=== PATIENT | male | born 1965 | race Caucasian/White ===

== ENCOUNTER → 2020-05-25 15:36 | Outpatient (BNVA) | payer OTHER, SELFPAY | PROVIDERS: PCP Internal Medicine; Visit Provider Physician Assistant | DX: S39.012A Strain of muscle, fascia and tendon of lower back, initial encounter (principal); X50.9XXA Other and unspecified overexertion or strenuous movements or postures, initial encounter | CPT/HCPCS: 99202 ==

== ENCOUNTER → 2020-05-28 10:43 | Outpatient (BNVA) | payer OTHER, SELFPAY | PROVIDERS: PCP Internal Medicine; Visit Provider Physician Assistant Medical | DX: S39.012A Strain of muscle, fascia and tendon of lower back, initial encounter (principal); X50.9XXA Other and unspecified overexertion or strenuous movements or postures, initial encounter | CPT/HCPCS: 99213 ==

== ENCOUNTER → 2020-06-02 12:37 | Outpatient (BNVA) | payer OTHER, SELFPAY | PROVIDERS: PCP Internal Medicine; Visit Provider Physician Assistant | DX: S39.012D Strain of muscle, fascia and tendon of lower back, subsequent encounter (principal); X58.XXXD Exposure to other specified factors, subsequent encounter | CPT/HCPCS: 99213 ==

== ENCOUNTER → 2020-06-08 15:32 | Outpatient (BNVA) | payer OTHER, SELFPAY | PROVIDERS: PCP Internal Medicine; Visit Provider Physician Assistant | DX: S39.012D Strain of muscle, fascia and tendon of lower back, subsequent encounter (principal); X58.XXXD Exposure to other specified factors, subsequent encounter | CPT/HCPCS: 99213 ==

== ENCOUNTER 2022-02-25 18:10 | Emergency (ER) | payer OTHER, SELFPAY ==
--- NOTE | ~2022-02-25 | XR_ITS ---
EXAMINATION: XR KNEE, LEFT CLINICAL INFORMATION: Left knee pain COMPARISON: None TECHNIQUE: AP and lateral views of the left knee. FINDINGS: Status post total knee arthroplasty. No periprosthetic fracture dislocation. No significant periprosthetic radiolucency. Small amount of knee joint fluid. No large joint effusion. XR/XR knee LT 2V IMPRESSION: 1. Status post total knee arthroplasty. No radiographic evidence of complication. 2. Trace joint effusion.
--- NOTE | ~2022-02-25 | US_ITS ---
EXAMINATION: US VENOUS ULTRASOUND WITH DOPPLER LOWER EXTREMITY, LEFT CLINICAL INFORMATION: Lower extremity swelling and pain with positive d-dimer. COMPARISON: None TECHNIQUE: Ultrasound of the deep veins is performed from the hip to the calf with compression sonography and color and pulse Doppler assessment. Spectral analysis with color-flow imaging is performed. FINDINGS: There is normal venous compression and respiratory variation and augmented flow. The visualized common femoral vein, superficial femoral vein, profunda femoral vein, popliteal vein, and the trifurcation region shows no evidence of deep venous thrombosis. Imaged segments of the posterior tibial and peroneal calf veins are patent. US/US venous duplex LE LT IMPRESSION: No DVT demonstrated in the left lower extremity.
--- NOTE | ~2022-02-25 | CT_ITS ---
EXAMINATION: CT pelvis wo con, CT lower leg LT wo con CLINICAL INFORMATION: Reason for Exam left hip and calf pain COMPARISON: None. TECHNIQUE: Axial images were obtained through the pelvis in the left lower leg without the administration of intravenous contrast. Coronal and sagittal reformatted images were generated. Intravenous Contrast: None This CT examination was performed using dose optimization techniques as appropriate, variously including the following: *Automated exposure control *Adjustment of mA and/or kV according to patient size (this includes techniques or standardized protocols for targeted exams where dose is matched to indication/reason for exam; i.e. extremities or head) *Use of iterative reconstruction technique DLP: 896 mGy-cm FINDINGS: CT pelvis: Soft tissues: No free pelvic fluid. Bladder is grossly unremarkable. Prostate gland is grossly unremarkable. No dilated bowel loops in the [id number]. No pelvic or inguinal lymphadenopathy. Small fat-containing left inguinal hernia. No soft tissue mass. Bones: No fracture or malalignment. Minimal acetabular rim osteophyte formation at both hips compatible with mild degenerative change. Joint spaces appear maintained. No evidence of femoral head avascular necrosis. No suspicious osseous lesion. 1.2 cm sclerotic bone island in the left upper sacrum noted incidentally. Smaller sclerotic bone island in the right subcapital femoral neck. No large hip joint effusions. Pubic symphysis and SI joints are congruent and intact. Mild disc height loss at L5-S1. Left-sided prominent facet arthrosis at L4-L5. CT left lower leg: Status post total knee arthroplasty. No periprosthetic fracture. No areas of osteolysis or periprosthetic radiolucency to suggest stress small particle disease or loosening. Small knee joint effusion. No periarticular fluid collection identified. No soft tissue mass. No deep fascial edema/fluid. No tracking soft tissue gas. No ankle joint effusion. CT/CT lower leg LT wo con IMPRESSION: 1. No acute osseous injury identified. 2. Minimal bilateral hip joint osteoarthritis. 3. Status post left total knee arthroplasty. No evidence of loosening or osteolysis. 4. Small left knee joint effusion. 5. No acute soft tissue injury or mass identified.
--- NOTE | ~2022-02-25 | CT_ITS ---
EXAMINATION: CT pelvis wo con, CT lower leg LT wo con CLINICAL INFORMATION: Reason for Exam left hip and calf pain COMPARISON: None. TECHNIQUE: Axial images were obtained through the pelvis in the left lower leg without the administration of intravenous contrast. Coronal and sagittal reformatted images were generated. Intravenous Contrast: None This CT examination was performed using dose optimization techniques as appropriate, variously including the following: *Automated exposure control *Adjustment of mA and/or kV according to patient size (this includes techniques or standardized protocols for targeted exams where dose is matched to indication/reason for exam; i.e. extremities or head) *Use of iterative reconstruction technique DLP: 896 mGy-cm FINDINGS: CT pelvis: Soft tissues: No free pelvic fluid. Bladder is grossly unremarkable. Prostate gland is grossly unremarkable. No dilated bowel loops in the [id number]. No pelvic or inguinal lymphadenopathy. Small fat-containing left inguinal hernia. No soft tissue mass. Bones: No fracture or malalignment. Minimal acetabular rim osteophyte formation at both hips compatible with mild degenerative change. Joint spaces appear maintained. No evidence of femoral head avascular necrosis. No suspicious osseous lesion. 1.2 cm sclerotic bone island in the left upper sacrum noted incidentally. Smaller sclerotic bone island in the right subcapital femoral neck. No large hip joint effusions. Pubic symphysis and SI joints are congruent and intact. Mild disc height loss at L5-S1. Left-sided prominent facet arthrosis at L4-L5. CT left lower leg: Status post total knee arthroplasty. No periprosthetic fracture. No areas of osteolysis or periprosthetic radiolucency to suggest stress small particle disease or loosening. Small knee joint effusion. No periarticular fluid collection identified. No soft tissue mass. No deep fascial edema/fluid. No tracking soft tissue gas. No ankle joint effusion. CT/CT pelvis wo con IMPRESSION: 1. No acute osseous injury identified. 2. Minimal bilateral hip joint osteoarthritis. 3. Status post left total knee arthroplasty. No evidence of loosening or osteolysis. 4. Small left knee joint effusion. 5. No acute soft tissue injury or mass identified.
[2022-02-25 18:23] VITALS: BP 113/86; PULSE 75; RESP 18; TEMP 36.9; O2SAT 97; BMI 28.0
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
[2022-02-25 21:31] LABS: D Dimer High Sensitivity 373 NG/ML
== END 2022-02-26 00:09 | disposition home or self-care (01) ==
PROVIDERS: Physician Assistant; Emergency Provider Internal Medicine; PCP Internal Medicine
DX: Z04.1 Encounter for examination and observation following transport accident (principal); M79.605 Pain in left leg; M25.562 Pain in left knee; M25.462 Effusion, left knee; Z96.652 Presence of left artificial knee joint
CPT/HCPCS: 36415; 72192; 73560; 73700; 85379; 93971; 99282; 99283; 99284

== ENCOUNTER 2024-02-24 13:40 | Emergency (ER) | payer OTHER, SELFPAY ==
--- NOTE | ~2024-02-24 | US_ITS ---
EXAMINATION: US VENOUS ULTRASOUND WITH DOPPLER LOWER EXTREMITY, RIGHT CLINICAL INFORMATION: Pain COMPARISON: Lower extremity DVT ultrasound 02/25/2022 TECHNIQUE: Ultrasound of the deep veins is performed from the hip to the calf with compression sonography and color and pulse Doppler assessment. Spectral analysis with color-flow imaging is performed. FINDINGS: There is normal venous compression and respiratory variation and augmented flow. The visualized common femoral vein, superficial femoral vein, profunda femoral vein, popliteal vein, and the trifurcation region shows no evidence of deep venous thrombosis. There is no significant popliteal fossa cyst. US/US venous duplex LE RT IMPRESSION: No DVT demonstrated in the right lower extremity.
--- NOTE | ~2024-02-24 | US_ITS ---
EXAMINATION: US VENOUS ULTRASOUND WITH DOPPLER LOWER EXTREMITY, LEFT CLINICAL INFORMATION: Pain COMPARISON: None available. TECHNIQUE: Ultrasound of the deep veins is performed from the hip to the calf with compression sonography and color and pulse Doppler assessment. Spectral analysis with color-flow imaging is performed. FINDINGS: There is normal venous compression and respiratory variation and augmented flow. The visualized common femoral vein, superficial femoral vein, profunda femoral vein, popliteal vein, and the trifurcation region shows no evidence of deep venous thrombosis. There is no significant popliteal fossa cyst. . If the patient's symptoms persist, followup ultrasound in 5 days 7 days might be of value to exclude proximal propagation from a non-visualized calf vein. US/US venous duplex LE LT IMPRESSION: No DVT demonstrated in the left lower extremity.
[2024-02-24 13:52] VITALS: BP 134/70; PULSE 68; RESP 18; TEMP 36.6; O2SAT 98; BMI 36.6
--- NOTE | 2024-02-24 13:52 | ED_ITS ---
HPI - Extremity Injury (Lower) General Chief Complaint: Extremity Injury, Lower Stated Complaint: L leg pain, no injury Time Seen by Provider: 02/24/24 14:30 Source: patient Mode of arrival: ambulatory Limitations: no limitations History of Present Illness HPI Narrative: Patient is a 58-year-old male who presents emergency department for evaluation of leg cramps. He reports he has been experiencing left lateral thigh cramping intermittently over the past 5 days, states ?sometimes it gets so bad I can not bend bite knee. He has also been experiencing right calf pain that is described as being very sharp in nature. He denies any precipitating injury. He denies any recent medication changes. He denies any redness or warmth. Denies associated chest pain, shortness of breath, back pain, dizziness, lightheadedness. Related Data Allergies Allergy/AdvReac Type Severity Reaction Status Date / Time No Known Allergies Allergy Verified 02/24/24 13:53 Review of Systems 2 Review of Systems: Yes all other systems are reviewed and are negative [facility] Past Medical History Attestation statement: The following information was validated with the patient. Source: old records reviewed Social History Social History Smoked in Last 30 Days: No Use of substances other than those prescribed or required for medical reasons: No Advance Directives: No Advance Directives Information Provided: No Do you have a plan to hurt others: No Plan Physical Exam 2 Vital Signs: Vital Signs: Last Vital Signs Temp 97.9 F 02/24/24 15:41 Pulse 60 02/24/24 15:41 Resp 16 02/24/24 15:41 BP 125/64 02/24/24 15:41 Pulse Ox 100 02/24/24 15:41 O2 Del Method Room Air 02/24/24 15:41 BMI result Body Mass Index 36.6 Appearance: Alert.?Oriented to person, place and time. No acute distress.?Normal affect. Eyes: Pupils equal, round and reactive to light.? ENT: Pharynx normal.?? Neck: Normal inspection.? Neck supple.?? CVS: Heart sounds normal. Normal heart rate and rhythm.? Pulses normal.?? Respiratory: No respiratory distress.? Lung sounds clear to auscultation bilaterally?? Abdomen: Soft and non-tender. Normoactive bowel sounds. Skin: Skin warm and dry.? Normal skin color. Extremities: No lower extremity edema. Bilateral calf tenderness upon palpation. 2+ DP/PT pulse bilaterally Neuro: Moves all extremities spontaneously. Sensation intact bilaterally. Ambulates with normal steady gait. Course Course Course Narrative: This is a Rapid Medical Exam performed in triage by Katie Quintanilla PA-C. Full HPI, ROS and PE to be performed by primary ED provider. 58 year-old M w/ PMHx presenting to the ED c/o leg cramps to LLE x5 days & R calf pain. denies injury, SOB, back pain PE: ambulating w/limping gait Plan: Labs, US Reevaluation(s) Reevaluation #1: Patient signed out to night COURTNEY Sebastián MOLINA pending left lower extremity venous duplex ultrasound and re-evaluation, anticipate discharge home if negative for DVT Time: 16:06 Medications Administered Discontinued Medications Generic Name Dose Route Start Last Admin Trade Name Freq PRN Reason Stop Dose Admin Sodium Chloride 1,000 mls @ 999 mls/hr 02/24/24 15:00 02/24/24 15:09 Ns IV 02/24/24 16:00 999 mls/hr .Q1H1M KEEGAN Administration Ketorolac Tromethamine 15 mg 02/24/24 14:49 02/24/24 15:08 Ketorolac Tromethamine 15 Mg/Ml Vial IVPUSH 02/24/24 14:50 15 mg ONCE ONE Administration Medical Decision Making Medical Decision Making MDM Narrative: Patient is a 58-year-old male with history of left knee replacement presenting to emergency department for evaluation of cramping of the left lateral thigh and right calf pain as per HPI. Reviewed labs and radiographic imaging assumed prior to my assumption of care; CBC is without leukocytosis anemia or thrombocytopenia, no electrolyte derangement, no ALNOA, LFTs within normal range. CK mildly elevated at 448, son appear consistent with acute rhabdomyolysis. A venous duplex ultrasound of the right lower extremity was obtained and is without evidence of DVT. Discussed these findings with patient at the time of my evaluation, he states ?I do not know why they did not an ultrasound on my right leg is my left leg that is bothering me?. At this time he reports to me that he has occasional pain in his right calf described as a cramping sensation. He states ?I have severe pain in my left leg? points from the right lateral thigh and states that it extends all the way down to his lateral calf. On re-evaluation, he has calf tenderness on the left side. Has 2+ DP/PT pulse, no overt edema. He is wearing an [id number] left knee brace. Plan to obtain venous duplex ultrasound of the left, though clinically I have a lower suspicion for DVT. Differential Diagnosis Differential Diagnoses: The differential diagnosis associated with the presentation includes (DVT, Electrolyte derangement, ALONA, vitamin deficiency, dehydration, suspect less likely to have acute rhabdo) Admission/Observation Consideration of admission/observation: Escalation of care including admission/observation considered Lab Data MDM Lab Attestation statement: I reviewed the patient's lab results. CBC and CMP are overall unremarkable. Magnesium within normal range. Mildly elevated CPK at 448 02/24/24 14:07 02/24/24 14:07 Labs: Lab Results 02/24/24 Range/Units 14:07 WBC 9.5 (4.8-10.8) X10*3/uL RBC 5.36 (4.60-5.80) X10*6/uL Hgb 15.5 (14.0-18.0) g/dl Hct 45.9 (42.0-52.0) % MCV 85.6 (80.0-98.0) fL MCH 28.9 (27.0-33.0) pg MCHC 33.8 (31.0-36.0) g/dl RDW 12.4 (11.0-16.0) % Plt Count 255 (160-400) X10*3/uL MPV 9.1 L (9.4-12.4) fL Immature Gran % (Auto) 0.3 (0.0-0.4) % Neut % (Auto) 65.0 (45-73) % Lymph % (Auto) 26.2 (20-40) % [place] % (Auto) 7.1 (2-11) % Eos % (Auto) 1.2 (0-4) % Baso % (Auto) 0.2 (0-2) % Lymph # (Auto) 2.5 (1.2-4.9) X10*3/uL [place] # (Auto) 0.7 (0.1-1.2) X10*3/uL Eos # (Auto) 0.1 (0.0-0.4) X10*3/uL Baso # (Auto) 0.0 (0.0-0.2) X10*3/uL Abs Immat Gran (auto) 0.03 (0.00-0.03) X10*3/uL Absolute Neuts (auto) 6.2 (2.0-8.3) x10*3/uL Absolute Nucleated RBC 0.000 (0.0-0.012) X10*3/uL Nucleated RBC % (auto) 0.0 (0.0-0.2) /100WBC Sodium 136 (135-145) mmol/L Potassium 4.3 (3.3-5.1) mmol/L Chloride 105 (96-108) mmol/L Carbon Dioxide 22 (22-29) mmol/L Anion Gap 13 (12-20) BUN 17 H (9-16) mg/dL Creatinine 0.89 (0.5-1.4) mg/dL Estim Creat Clear Calc 80.9 Estimated GFR > 60 Random Glucose 104 (60-115) mg/dL Calcium 9.8 (8.4-10.2) mg/dL Magnesium 2.3 (1.6-2.6) mg/dL Total Bilirubin 0.5 (0.0-1.0) mg/dL Direct Bilirubin 0.2 (0.0-0.5) mg/dL AST 26 (5-37) U/L ALT 34 (0-40) U/L Alkaline Phosphatase 102 (39-117) U/L Total Creatine Kinase 448 H (38-174) U/L Total Protein 7.5 (6.5-8.0) g/dL Albumin 4.5 (3.5-5.0) g/dL Independent Interpretation I performed an independent interpretation of an: Ultrasound (No DVT) Radiology Impression Discussion of test interpretation with radiology: I have reviewed the radiologist's reading. Radiologist Impression: US/US venous duplex LE RT IMPRESSION: No DVT demonstrated in the right lower extremity. Independent Historian Clinical information obtained from an independent historian. History obtained from or confirmed by: Spouse External Record Review External record reviewed: Outpatient record Discharge Plan Discharge Clinical Impression: Lower extremity pain Patient Disposition: Still a Patient Print Language: Citizen Of [place]
[2024-02-24 14:00] VITALS: RESP 18
[2024-02-24 14:14] LABS: MANUAL DIFF FLAG NO
[2024-02-24 14:15] LABS: Basophils Percent Auto 0.2 % (0-2); Eosinophils Absolute Auto 0.1 X10*3/uL (0.0-0.4); Eosinophils Percent Auto 1.2 % (0-4); Hematocrit 45.9 % (42.0-52.0); Hemoglobin 15.5 g/dl (14.0-18.0); Imm Gran Abs Auto 0.03 X10*3/uL (0.00-0.03); Imm Gran Pct Auto 0.3 % (0.0-0.4); Lymphocytes Absolute Auto 2.5 X10*3/uL (1.2-4.9); Lymphocytes Percent Auto 26.2 % (20-40); Mean Corpuscular HGB Conc 33.8 g/dl (31.0-36.0); Mean Corpuscular Hemoglobin 28.9 pg (27.0-33.0); Mean Corpuscular Volume 85.6 fL (80.0-98.0); Mean Platelet Volume 9.1 fL (9.4-12.4); Monocytes Absolute Auto 0.7 X10*3/uL (0.1-1.2); Monocytes Percent Auto 7.1 % (2-11); Neutrophils Absolute Auto 6.2 x10*3/uL (2.0-8.3); Platelet Count 255 X10*3/uL (160-400); Red Blood Count 5.36 X10*6/uL (4.60-5.80); Red Cell Distribution Width 12.4 % (11.0-16.0); White Blood Count 9.5 X10*3/uL (4.8-10.8)
[2024-02-24 14:33] LABS: Alanine Aminotransferase 34 U/L (0-40); Albumin Level 4.5 g/dL (3.5-5.0); Alkaline Phosphatase 102 U/L (39-117); Anion Gap 13 (12-20); Aspartate Amino Transferase 26 U/L (5-37); Bilirubin Direct 0.2 mg/dL (0.0-0.5); Bilirubin Total 0.5 mg/dL (0.0-1.0); Blood Urea Nitrogen 17 mg/dL (9-16); Calcium 9.8 mg/dL (8.4-10.2); Carbon Dioxide 22 mmol/L (22-29); Chloride 105 mmol/L (96-108); Creatinine Clr Calc Pharmacy 80.9; Estimated Glomerular Filt Rate > 60; Glucose Random 104 mg/dL (60-115); Magnesium 2.3 mg/dL (1.6-2.6); Potassium 4.3 mmol/L (3.3-5.1); Sodium 136 mmol/L (135-145); Total Protein 7.5 g/dL (6.5-8.0)
[2024-02-24] MEDS: Ketorolac Tromethamine 15 MG/ML VIAL IVPUSH (15:08)
[2024-02-24] MEDS: 0.9 % Sodium Chloride 1,000 ML 999 ML IV (15:09)
[2024-02-24 15:41] VITALS: BP 125/64; PULSE 60; RESP 16; TEMP 36.6; O2SAT 100
[2024-02-24 17:21] VITALS: BP 125/64; PULSE 60; RESP 16; TEMP 36.6; O2SAT 100
== END 2024-02-24 17:22 | disposition home or self-care (01) ==
PROVIDERS: Physician Assistant; Emergency Provider Emergency Medicine; PCP Internal Medicine
DX: M79.662 Pain in left lower leg (principal)
CPT/HCPCS: 36415; 80048; 80076; 82550; 83735; 85025; 93971; 96361; 96374; 99284; J1885

== ENCOUNTER → 2024-12-17 08:25 | Outpatient (RCR) | payer OTHER, SELFPAY | END | disposition home or self-care (01) | LOC: HO.PTCHIC 06-01 07:30 | PROVIDERS: Visit Provider Physician Assistant Medical | DX: S39.012D Strain of muscle, fascia and tendon of lower back, subsequent encounter (principal) | CPT/HCPCS: 97110; 97161; 97530 ==

== ENCOUNTER 2025-07-03 13:06 | Outpatient (AMB) | payer OTHER, SELFPAY ==
[2025-07-03 13:17] VITALS: BMI 18.2
--- NOTE | 2025-07-03 13:17 | A.SPINEOV_ITS ---
Vital Signs 07/03/25 13:17 Height 5 ft 8 in Weight 120 lb BMI 18.2 Intake Visit Reasons: sciatica pain/pinch nerve Intake Note: Mr. Boyce is here today c/o Left sided sciatica. 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 The patient reports numbness in his similar distribution. The pain is aggravated with standing walking. He was diagnosed with left L4 foraminal stenosis awhile back. He has been through conservative treatment in the form of physical therapy as well as cortisone injections at the [facility]. He had no successful relief from the injections, in fact the only made him worse. He takes meloxicam and diclofenac to help with the pain. He did see Dr. Larson at [facility] and it sounds like she offered him a left L4 foraminotomy but gave him only 50% chance of success. He did not like these odds, so he came to see us as a 2nd opinion. PMH: History of hypertension which is well controlled, he had open heart surgery in 2004 to fix an aneurysm. This has been stable and followed for years with no new changes. He had a total knee replacement, rotator cuff surgery. Denies any history of cardiovascular disease, pulmonary disease, liver or kidney problems, bleeding disorders blood clots major abdominal surgery, or unusual infections. Social hx: He does not smoke, drink use any recreational drugs Medications: Lisinopril on meloxicam Allergies: None Physical exam: Awake alert oriented no acute distress, he has bilateral hand weakness which I would rate as 4/5. Rest of his motor examination is normal. Positive straight leg raise at 40 degrees. Reflexes are diffusely brisk and hyperreflexic on the left side with Faria's and clonus. Gait is stable when he is walking in the hallway but somewhat unsteady with tandem gait walking. Imaging review: Lumbar MRI done at [facility] in May 2025 shows normal alignment of the spine, there maybe a subtle anterior listhesis of L4 on L5. He has moderate to severe left L4 foraminal stenosis but other than that I do not see any nerve impingement. Impression: 60-year-old male presents with a left lumbar radiculopathy which seems to fit best L5, however he does have severe left L4 foraminal stenosis. The pain is aggravated with standing walking and gets better when he sits down. However, sitting for too long can also aggravate things. He was offered surgery, what sounds like a left L4 foraminotomy at [facility] but was given very poor odds. It is the only finding in his lumbar spine that I think would explain his symptoms, however it is somewhat unusual but as we know, sometimes the dermatomal distributions do not fit the strict anatomy from the dermatomal maps. Unfortunately he did not have a good response to the injections that he had done as that would help us localize this a little bit better. I will talk to Dr. 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 He was worried about having the surgery done at [facility] because he was told that would be about a six-month recovery, and the odds were only 50 50 that he would improve. As a side note, his neurological examination is demonstrating signs of myelopathy. He does complain of numbness of his hands so I am going to get a cervical MRI as a precaution. Once I have a chance to review everything with Dr. Plascencia I will get back to the patient with a final plan. Thank you for allowing us to care for your patient. The total time spent with this visit with this patient was 45 minutes reviewing history, physical exam, lumbar imaging review, and implementation of treatment plan or further diagnostic testing Dmitriy Plascencia MD,PhD [facility] Orders: Orders MR cervical spine wo con Today M50.90 - Cervical disc disorder, unspecified, unspecified cervical region Coding Level of Care Code New Pt Level 4 (88865) Diagnoses Cervical disc disorder M50.90 Lumbar radiculopathy M54.16
== END 2025-07-03 13:50 | disposition home or self-care (01) ==
LOC: HO.HNS 13:06
PROVIDERS: PCP Internal Medicine; Visit Provider Physician Assistant
DX: M50.90 Cervical disc disorder, unspecified, unspecified cervical region (principal); M54.16 Radiculopathy, lumbar region
CPT/HCPCS: 99204